=== PATIENT | male | born 1960 | race Caucasian/White ===

== ENCOUNTER 2020-09-25 08:35 | Emergency (ER) | payer BC ==
[2020-09-25 08:51] VITALS: BP 128/88; PULSE 94; TEMP 98.8; BMI 25.7
== END 2020-09-25 10:00 | disposition home or self-care (01) ==
LOC: JER 08:35
DX: U07.1 COVID-19 (principal)
CPT/HCPCS: 71046-TC-FY; 87804; 99284-25; C9803; U0003

== ENCOUNTER 2021-07-06 12:55 | Emergency (ER) | payer BC, OTHER ==
[2021-07-06 13:30] VITALS: BP 129/89; PULSE 88; TEMP 98; BMI 24.3
[2021-07-06] MEDS ORDERED: IBUPROFEN 600 MG TABLET (FP) PO ONE ×2 (14:06→14:12)
== END 2021-07-06 16:32 | disposition home or self-care (01) ==
LOC: JER 12:55
DX: M79.10 Myalgia, unspecified site (principal)
CPT/HCPCS: 71046-TC-FY; 87804; 99284-25; C9803; U0003; U0005

== ENCOUNTER 2021-07-09 09:43 | Emergency (ER) | payer OTHER ==
[2021-07-09 10:03] VITALS: BP 150/98; PULSE 86; TEMP 98.1; BMI 24.7
[2021-07-09] MEDS ORDERED: ACETAMINOPHEN WITH CODEINE 300MG/30MG TABLET PO ONE (10:51)
[2021-07-09] MEDS ORDERED: ACETAMINOPHEN WITH CODEINE 300MG/30MG TABLET ONE (11:32)
== END 2021-07-09 11:00 | disposition home or self-care (01) ==
LOC: JER 09:43
DX: R05.9 Cough, unspecified (principal); J06.9 Acute upper respiratory infection, unspecified
CPT/HCPCS: 99283-25

== ENCOUNTER 2022-04-28 07:31 | Day surgery (SDC) | payer OTHER ==
[2022-04-26 14:45] VITALS: BMI 23.9
[2022-04-28 10:42] VITALS: RESP 18; TEMP 97.8
[2022-04-28 11:30] VITALS: BP 131/71; PULSE 65
== END 2022-04-28 11:30 | disposition home or self-care (01) ==
LOC: FASU-ENDO 07:31
PROVIDERS: ATTEND Internal Medicine Gastroenterology
PROC: 0DB98ZX Excision of Duodenum, Via Natural or Artificial Opening Endoscopic, Diagnostic (ICD-10-PCS; 2022-04-28)
PROC: 0DB68ZX Excision of Stomach, Via Natural or Artificial Opening Endoscopic, Diagnostic (ICD-10-PCS; 2022-04-28)
PROC: 0DJD8ZZ Inspection of Lower Intestinal Tract, Via Natural or Artificial Opening Endoscopic (ICD-10-PCS; principal; 2022-04-28 09:52)
DX: Z12.11 Encounter for screening for malignant neoplasm of colon (principal); K64.1 Second degree hemorrhoids; K29.50 Unspecified chronic gastritis without bleeding; K20.90 Esophagitis, unspecified without bleeding
CPT/HCPCS: 43239; G0121; 88305-TC; 88342-TC